=== PATIENT | female | born 2000 | race Caucasian/White ===

== ENCOUNTER 2022-12-08 11:45 | Emergency (ER) | payer SELFPAY ==
[~2022-12-08] VITALS: Ht 172.7 cm; Wt 84.0 kg
[2022-12-08 12:05] VITALS: BP 125/75
== END 2022-12-08 13:40 | disposition left against medical advice (07) ==
LOC: ER 11:45
DX: N93.8 Other specified abnormal uterine and vaginal bleeding (principal); Z53.21 Procedure and treatment not carried out due to patient leaving prior to being seen by health care provider
CPT/HCPCS: 81025; 99281; 99282